=== PATIENT | female | born 1980 | race Caucasian/White ===

== ENCOUNTER 2016-10-17 16:08 | Emergency (ER) | payer BC ==
[~2016-10-17] VITALS: Ht 172.7 cm; Wt 65.9 kg
[~2016-10-17 16:08] MED LIST: PRENTAB26 PO; RANITAB33 PO
[2016-10-17 16:13] VITALS: TEMP 36.6; Ht 172.7 cm; Wt 65.9 kg
[2016-10-17] MEDS ORDERED: IBUP-1050 PO (17:47)
[2016-10-17 18:24] LABS: HEMATOCRIT 36.4 % (37-47); MEAN CELL VOLUME 84.5 fL (80-100); MEAN CORPUSCULAR HGB CONC 34.3 g/dl (32-36); MEAN PLATELET VOLUME 10.3 fL (7.4-10.4); PLATELET COUNT 207 K/uL (130-400); RED BLOOD COUNT 4.31 M/uL (4.2-5.4); WHITE BLOOD COUNT 5.99 K/uL (4.8-10.8)
--- NOTE | 2016-10-17 18:35 | DIAGNOSTIC IMAGING REPORT ---
CHEST 2 VIEWS ROUTINE CLINICAL HISTORY: right anterior rib pain with coughing nausea COMPARISON STUDY: No previous studies for comparison. FINDINGS: The bones soft tissues and hemidiaphragms are normal. The cardiomediastinal silhouette is normal. The lungs are clear. The pulmonary vasculature is normal. There is pectus deformity of the chest. IMPRESSION: No acute process Electronically signed by: Jamey Santos M.D. 10/17/2016 6:34 PM Dictated Date/Time: 10/17/2016 6:33 PM
[2016-10-17 18:39] LABS: INR 1.1 (0.9-1.1); PARTIAL THROMBOPLASTIN RATIO 1.1; PROTHROMBIN TIME (PATIENT) 11.8 SECONDS (9.0-12.0)
[2016-10-17 18:45] LABS: CALCIUM 8.5 mg/dl (8.5-10.1); CREATININE 0.66 mg/dl (0.60-1.20); POTASSIUM 3.8 mmol/L (3.5-5.1)
[2016-10-17] MEDS ORDERED: OPTIRAY 320 IV PRN (19:00)
--- NOTE | 2016-10-17 19:32 | DIAGNOSTIC IMAGING REPORT ---
CHEST CTA for PULMONARY ARTERIES CT DOSE: 203.84 mGy.cm HISTORY: Chest pain dyspnea TECHNIQUE: Multiaxial CT images of the chest were performed following the intravenous administration of contrast to evaluate the pulmonary arteries. Maximal intensity projection images were also obtained. COMPARISON STUDY: None. FINDINGS: There is a normal caliber thoracic aorta with no evidence for dissection. There is no evidence for pulmonary embolus. No pleural effusions. No pneumothorax. The liver and spleen are unremarkable. No mediastinal or hilar lymphadenopathy. The central airways are patent. The lungs are clear. Severe pectus deformity of the chest. IMPRESSION: No evidence for pulmonary embolus. Pectus deformity of the chest Electronically signed by: Jamey Santos M.D. 10/17/2016 7:30 PM Dictated Date/Time: 10/17/2016 7:29 PM
[2016-10-17] MEDS ORDERED: HYDR-5688 PO (19:55)
[2016-10-17] MEDS ORDERED: PRED20TA PO (19:55)
--- NOTE | 2016-10-17 19:56 | EMERGENCY ROOM VISIT NOTE ---
ED Visit Note First contact with patient: 17:32 CHIEF COMPLAINT: Right anterior rib pain 3-4 days HISTORY OF PRESENT ILLNESS: Patient is a healthy 36-year-old white female who presents the emergency department for evaluation of right rib pain 3-4 days. Patient reports that she was sick with an upper respiratory illness that started about 3 weeks ago. Initially she treated conservatively but when her symptoms did not improve, she was seen by her primary care provider. She was placed on a course of Augmentin which she finished about 3 days ago. She was also using an albuterol inhaler. She states that the cough has improved slightly, she still has scant, intermittent productive cough. The day she finished the antibiotics, she began to notice some anterior right rib pain. She states that she felt like it was "harder to breathe" on that right-hand side. Initially the pain was kind of diffuse, but has become localized to rib underneath her right breast. The pain is a constant, dull 4/10 but increases to a 10/10 with coughing or sneezing. She has been using ibuprofen but it has done nothing for her discomfort. She states that the pain has been waking her overnight over the last couple of days. She went to the walk-in clinic at her doctor's office and they directed her to the emergency department. She does not smoke, and does not take any oral contraceptives. The pain does not wrap around to the side or through to her back. She denies any abdominal pain, nausea or vomiting. REVIEW OF SYSTEMS: Review of systems as per HPI. All other systems reviewed were negative. 10 systems reviewed. PMH: Electronic medical records are reviewed and summarized as above/below. See Problem List. SOCIAL HISTORY: Patient lives at home with her family. Nonsmoker. PHYSICAL EXAM: Vital Signs: Reviewed Nurse's notes. Patient was noted to be tachycardic with heart rate of 112 in triage, but was rechecked assessed in the exam room and was heart rate was 55 beats per minute. Oxygen saturation 100% on room air. She is normotensive. CONSTITUTIONAL: Patient is a pleasant, well-appearing 36-year-old white female who is awake and alert and in no acute distress. EYES: Pupils equal, round, reactive to light and accommodation. EOMs intact without nystagmus. Sclera are anicteric. ENT: Tympanic membranes intact, with normal landmarks. External canals are clear. Oral and nasopharynx are clear. Mucous membranes are moist, no lesions , tongue and gums appear normal. NECK: No bruits auscultated. Supple without lymphadenopathy. No thyromegaly. No meningeal signs. Full active range of motion without discomfort. CARDIOVASCULAR: Regular rate and rhythm, with normal S1 and S2, no murmur or gallop or rub is heard. No carotid bruits auscultated. No JVD. Peripheral pulses easily palpable. RESPIRATORY: Breath sounds equal and clear to auscultation without wheezes, rales, or rhonchi heard. Full and equal chest expansion without accessory muscle use or retractions. CHEST: Sternum is nontender. Patient has exquisite, reproducible anterior right rib discomfort in the mid axillary line. ABDOMEN: Soft, non-tender, no organs or masses felt. Bowel sounds normo- active. No bruits. INTEGUMENTARY: No lesions or rash, normal skin turgor. LYMPH: No lymphadenopathy. EMERGENCY DEPARTMENT COURSE: The patient was seen and evaluated as above. She presents the emergency department for pleuritic right-sided rib/chest pain in the setting of a recent URI/bronchitis-like illness. EKG was performed and was as noted below. IV lock was initiated. Laboratory studies were collected including CBC, coags, BMP, [id number]-[id number] troponin and d-dimer. Urine test was performed and was negative. Chest x-ray was performed and was as noted below. EKG: Sinus bradycardia at 48 beats per minute, incomplete right bundle-branch block. No acute ischemic changes noted. No ectopy. Old EKGs are reviewed. No significant changes noted. Patient's laboratory studies demonstrated a normal white count and H&H. Electrolytes are unremarkable. Vpyxf-oe-gzht troponin is negative with symptoms greater than 24 hours. Urine test is negative. Coags are unremarkable, rwgnd-jf-yurd d-dimer was greater than 450. Given this, CT of the chest with IV contrast was ordered to evaluate for PE. Chest CT did not demonstrate any evidence for pulmonary embolus. Supportive care measures were discussed with the patient. I do believe her pain is likely related some residual pleural irritation. It was not felt that any further antibiotics are indicated. She was placed on a short course of oral prednisone and then will resume her anti-inflammatory medications. She was given [place] to use for severe pain. She has no albuterol inhaler that she can use as needed. She was educated on worrisome signs or symptoms for which she should return to the emergency department and was advised to recheck with her primary care provider this week for further care and evaluation. Patient was discharged to home with her family members in good condition. Differential diagnosis includes acute myocardial infarction, acute coronary syndrome, myocarditis, pericarditis, pulmonary embolism, pneumonia, pneumothorax , cardiomyopathy, bronchitis, intercostal neuritis, pleurisy, COPD/asthma exacerbation, musculoskeletal, anxiety, costochondritis, among others. CHEST 2 VIEWS ROUTINE CLINICAL HISTORY: right anterior rib pain with coughing nausea COMPARISON STUDY: No previous studies for comparison. FINDINGS: The bones soft tissues and hemidiaphragms are normal. The cardiomediastinal silhouette is normal. The lungs are clear. The pulmonary vasculature is normal. There is pectus deformity of the chest. IMPRESSION: No acute process CHEST CTA for PULMONARY ARTERIES CT DOSE: 203.84 mGy.cm HISTORY: Chest pain dyspnea TECHNIQUE: Multiaxial CT images of the chest were performed following the intravenous administration of contrast to evaluate the pulmonary arteries. Maximal intensity projection images were also obtained. COMPARISON STUDY: None. FINDINGS: There is a normal caliber thoracic aorta with no evidence for dissection. There is no evidence for pulmonary embolus. No pleural effusions. No pneumothorax. The liver and spleen are unremarkable. No mediastinal or hilar lymphadenopathy. The central airways are patent. The lungs are clear. Severe pectus deformity of the chest. IMPRESSION: No evidence for pulmonary embolus. Pectus deformity of the chest Problem List Medical Problems: (1) Vaginal delivery Status: Resolved Current/Historical Medications Scheduled Ibuprofen (Advil), 200-600 MG PO Q6 Prednisone (Prednisone), 0 PO DAILY Scheduled PRN Hydrocodone/Acetaminophen 5MG/325MG ([place] 5MG/325MG), 1-2 TABLETS PO Q4 PRN for Pain Allergies Coded Allergies: No Known Allergies (Unverified , 10/17/16) UNKNOWN Vital Signs Date Time Temp Pulse Resp B/P Pulse Ox O2 Delivery O2 Flow Rate FiO2 10/17/16 20:07 54 15 104/65 100 10/17/16 18:14 53 20 122/68 96 10/17/16 18:03 52 10/17/16 16:13 36.6 112 20 107/56 99 Room Air Laboratory Results 10/17/16 18:04 10/17/16 18:04 Test 10/17/16 18:04 10/17/16 18:16 10/17/16 18:31 Red Blood Count 4.31 M/uL (4.2-5.4) Mean Corpuscular Volume 84.5 fL (80-100) Mean Corpuscular Hemoglobin 29.0 pg (25-34) Mean Corpuscular Hemoglobin Concent 34.3 g/dl (32-36) RDW Standard Deviation 38.3 fL (36.4-46.3) RDW Coefficient of Variation 12.5 % (11.5-14.5) Mean Platelet Volume 10.3 fL (7.4-10.4) Prothrombin Time 11.8 SECONDS (9.0-12.0) Prothromb Time International Ratio 1.1 (0.9-1.1) Activated Partial Thromboplast Time 27.9 SECONDS (21.0-31.0) Partial Thromboplastin Ratio 1.1 Anion Gap 8.0 mmol/L (3-11) Est Creatinine Clear Calc Drug Dose 118.8 ml/min Estimated GFR () 131.7 Estimated GFR (Non- 113.6 BUN/Creatinine Ratio 24.0 (10-20) Calcium Level 8.5 mg/dl (8.5-10.1) Bedside D-Dimer > 450 ng/mlFEU (0-450) Bedside Troponin I 0.000 ng/ml (0-0.045) Urine Test NEG (NEG) Medications Administered Medications (Trade) Dose Ordered Sig/Anuel Route Start Time Stop Time Status Last Admin Dose Admin Prednisone (PredniSONE TAB) 60 mg NOW STAT PO 10/17/16 19:49 10/17/16 19:51 DC 10/17/16 20:04 60 MG Acetaminophen/ Hydrocodone Bitart ([place] 5/325mg Home Pack) 1 homepack UD ONCE PO 10/17/16 20:00 10/17/16 20:01 DC 10/17/16 20:03 1 HOMEPACK Departure Information Impression Primary Impression: Pleuritic chest pain Prescriptions Prednisone (Prednisone) 20 Mg Tab 0 PO DAILY, #18 TAB 3 DAILY FOR 3 DAYS, THEN 2 DAILY FOR 3 DAYS, THEN 1 DAILY FOR 3 DAYS. Prov: Yuly Charles,PA 10/17/16 Hydrocodone/Acetaminophen 5MG/325MG ([place] 5MG/325MG) Tab 1-2 TABLETS PO Q4 Y for Pain, #20 TAB For Initial Treatment Prov: Yuly Charles PA 10/17/16 Referrals Shirin Vivas D.O. (PCP) Patient Instructions My [facility] Additional Instructions Prednisone 20 mg: Once daily as instructed until the prescription is finished. It is best to take this earlier in the day as some patients note occasional difficulty falling asleep when taken in the late evening. Hydrocodone/Acetaminophen ([place]) 5/325 mg: Take 1-2 pills every four hours for breakthrough pain. Avoid alcohol, operating machinery or dangerous equipment, working on ladders or roofs, DRIVING, or situations where being under the influence may be dangerous. It is recommended to use an [id number] stool softener such as Colace, 100mg twice daily while taking this medication to avoid constipation. Ibuprofen(Motrin, Advil) may be used for fever or pain. Use 600mg every six hours as needed. Take with food. Avoid using more than 2400mg in a 24 hour period. Do not use 2400mg per day for more than three consecutive days without physician direction. Prolonged inappropriate use can lead to stomach upset or ulcers. (AND/OR) Acetaminophen(Tylenol) may be used for fever or pain. Use 1000mg every six hours as needed. Avoid using more than 3000mg in a 24 hour period. Do not take prednisone and ibuprofen concurrently. Rest and drink plenty of fluids as tolerated. Continue current medications. Avoid strenuous activities and anything that worsens your pain. Resume normal activities once your symptoms resolve. Return to the ER immediately for worsening or persistent chest pain, abdominal pain, vomiting, fevers, chest pains, difficulty breathing, worsening of your condition, or as needed. Follow up with your primary physician in 2-3 days for a recheck of your current condition.
[2016-10-17] MEDS ORDERED: NORCO 5/325MG HOME PACK PO ONE (20:00)
[2016-10-17 20:07] VITALS: BP 104/65; PULSE 54; O2SAT 100
== END 2016-10-17 20:08 | disposition home or self-care (01) ==
LOC: C.EDB 16:09 → C.EDD 20:08
DX: R07.1 Chest pain on breathing (principal); R00.1 Bradycardia, unspecified; I45.10 Unspecified right bundle-branch block